=== PATIENT | male | born 1935 | race Caucasian/White ===

== ENCOUNTER → 2016-06-14 | Outpatient (CLI) | payer MEDICARE, OTHER ==
[~2016-06-14] MED LIST: AMLO5TAB2 PO; CALC1CAP22 PO; GADOBUTROL 10mMol/10ml INJECTION IV ONE; LEVO50TA PO; LISI40TA4 PO; METO-482 PO; MULT-933 PO; OMEG300C; OMEP20CA4 PO; SALINE FLUSH 10ml SYRINGE ONE; SIMV40TA82 PO; [UNRECOGNIZED DRUG - CODE] PO
--- NOTE | 2016-06-14 15:31 | DI ---
Indication: ITS.REASON: M54.5 LBP PROCEDURE: MRI LUMBAR SPINE W/WO CONTRAST: Encounter: Initial Comparison: None Technique: Multiplanar multisequence MR imaging of the lumbar spine was performed with and without contrast. Contrast: 7 mL Gadavist Findings: Alignment lumbar spine shows anterolisthesis of L4 on L5, grade 1 which appears degenerative. No acute fracture identified. Small sacral Tarlov cysts noted incidentally. Conus medullaris terminates normally at T12-L1. The paraspinal soft tissues are grossly unremarkable. Segmental analysis: L1-L2: No significant disk herniation, central canal or neural foraminal stenosis. L2-L3: Normal L3-L4: Mild disk desiccation and height loss without focal herniation or central canal stenosis. Mild degenerative facet disease. Minimal right and mild left neural foraminal stenosis. L4-L5: Abnormal T2 hyperintense signal within the disk with an anterior predominance. There is surrounding T1 hypointense, T2 hyperintense signal within the adjacent vertebral endplates. There is also postcontrast enhancement of the disk and adjacent endplates on the postcontrast images. There is a small disk protrusion combined with degenerative facet disease which results in moderate central canal stenosis. There is no significant neural foraminal stenosis however. L5-S1: Normal No other areas of abnormal postcontrast enhancement seen within the vertebral bodies or central spinal canal. 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 Recommend clinical and laboratory correlation. Acute annular disk tear with reactive endplate edema is also possible. There is no history of prior surgery or intervention in this area on the patient's history form. .
== END ==
LOC: IMA 13:49
PROVIDERS: ATTEND Internal Medicine Hematology & Oncology
DX: M47.816 Spondylosis without myelopathy or radiculopathy, lumbar region (principal); M48.06 Spinal stenosis, lumbar region; M51.36 Other intervertebral disc degeneration, lumbar region; R93.7 Abnormal findings on diagnostic imaging of other parts of musculoskeletal system
CPT/HCPCS: 72158; A9585